=== PATIENT | male | born 2000 | race Caucasian/White ===

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

== ENCOUNTER 2020-01-21 20:56 | Emergency (ER) | payer MEDICAID, OTHER ==
[~2020-01-21] VITALS: Ht 172.7 cm; Wt 65.8 kg
[2020-01-21 21:11] VITALS: BP 126/73
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
== END 2020-01-21 22:48 | disposition home or self-care (01) ==
LOC: ED 22:30
DX: S16.1XXA Strain of muscle, fascia and tendon at neck level, initial encounter (principal); S80.01XA Contusion of right knee, initial encounter; K21.9 Gastro-esophageal reflux disease without esophagitis; V49.49XA Driver injured in collision with other motor vehicles in traffic accident, initial encounter; Y93.89 Activity, other specified; Y92.009 Unspecified place in unspecified non-institutional (private) residence as the place of occurrence of the external cause; Y99.8 Other external cause status
CPT/HCPCS: 72050; 99283

== ENCOUNTER 2020-08-13 02:20 | Emergency (ER) | payer MEDICAID, OTHER ==
[~2020-08-13] VITALS: Ht 172.7 cm; Wt 80.0 kg
[2020-08-13 02:43] VITALS: BP 126/76
--- NOTE | 2020-08-13 02:51 | NUR ---
Patient brought in by [facility] for a legal 2K. Per [employer] patient had sent a text message to his mom stating that he was suicidal and he was going to end it all and was in a manic state. Patient states that he doesn't have a plan that he would just do what he needed to in the moment. Patient noted to be disheveled and unkept. States that he has a lot of stresser that brought him to the manic state and thought of SI.
[2020-08-13 02:54] LABS: BASOPHILS % (AUTO) 1 % (0-1); EOSINOPHILS % (AUTO) 20 % (1-7); LYMPHOCYTES % (AUTO) 30 % (22-44); MEAN CORPUSCULAR HEMOGLOBIN 29.3 pg (27.5-34.5); MEAN CORPUSCULAR HGB CONC 34.9 g/dL (33.2-36.2); MEAN PLATELET VOLUME 7.7 fL (7.4-10.4); MONOCYTES % (AUTO) 6 % (2-9); NEUTROPHILS % (AUTO) 44 % (42-75); PLATELET COUNT 199 x10^3/uL (130-400); RED BLOOD COUNT 5.22 x10^6/uL (4.38-5.82); RED CELL DISTRIBUTION WIDTH 12.8 % (9.4-14.8)
[2020-08-13 02:55] LABS: MD NO
[2020-08-13 02:56] LABS: MICROSCOPIC NOT IND
[2020-08-13 03:03] LABS: ALBUMIN 4.3 g/dL (3.4-5.0); ANION GAP 5 mmol/L (5-15); CALCIUM 8.8 mg/dL (8.5-10.1); CHLORIDE 110 mmol/L (98-107); CREATININE 0.91 mg/dL (0.7-1.3)
[2020-08-13 03:04] LABS: AMPHETAMINE SCREEN, URINE Negative (Negative); BARBITURATE SCREEN, URINE Negative (Negative); BENZODIAZEPINE SCREEN, URINE Negative (Negative); CANNABINOID SCREEN, URINE Negative (Negative); COCAINE SCREEN, URINE Negative (Negative); METHADONE SCREEN, URINE Negative (Negative); OPIATE SCREEN, URINE Negative (Negative)
[2020-08-13 03:15] LABS: SALICYLATE LEVEL < 1.7 mg/dL (2.8-20.0)
--- NOTE | 2020-08-13 03:50 | NUR ---
Patient resting turned down lights, Sitter present
--- NOTE | 2020-08-13 03:51 | NUR ---
Packet faxed to Angi [facility], [facility]
--- NOTE | 2020-08-13 04:12 | NUR ---
[facility] accepts. Accepting doctor is Dr. Gomez. via Patti.
--- NOTE | 2020-08-13 04:47 | NUR ---
Report given to Kingsley @ [facility].
--- NOTE | 2020-08-13 06:12 | NUR ---
pt resting on gurney. respirations even and unlabored. sitter at doorway for frequent checks. awaiting [facility] transport to [facility]
== END 2020-08-13 06:36 ==
LOC: ED 03:57
DX: F32.1 Major depressive disorder, single episode, moderate (principal); R45.851 Suicidal ideations
CPT/HCPCS: 36415; 80048; 80299; 80307; 80320; 80329; 81003; 82040; 85025; 99285; G0480